=== PATIENT | female | born 1970 | race Hispanic/Latino ===

== ENCOUNTER 2018-01-29 05:40 | Outpatient (CLI) | payer SELFPAY ==
[~2018-01-29] VITALS: Ht 149.9 cm; Wt 82.1 kg
[2018-01-30] MEDS ORDERED: IBUP-1773 PO (11:24)
== END 2018-01-29 12:14 ==
LOC: PREOP 05:40
PROVIDERS: ATTEND Obstetrics & Gynecology
DX: Z01.818 Encounter for other preprocedural examination (principal); N93.9 Abnormal uterine and vaginal bleeding, unspecified; R93.8 Abnormal findings on diagnostic imaging of other specified body structures